=== PATIENT | male | born 1940 | race Caucasian/White ===

== ENCOUNTER 2020-04-05 05:02 | Day surgery (SDC) | payer OTHER | END 2020-04-05 10:55 | disposition home or self-care (01) | LOC: JASU-ENDO 05:02 | PROC: 0DBM8ZX Excision of Descending Colon, Via Natural or Artificial Opening Endoscopic, Diagnostic (ICD-10-PCS; principal; 2020-04-05) | PROC: 0DBL8ZX Excision of Transverse Colon, Via Natural or Artificial Opening Endoscopic, Diagnostic (ICD-10-PCS; 2020-04-05) | CPT/HCPCS: 88305-TC ==